=== PATIENT | male | born 1985 | race Caucasian/White ===

== ENCOUNTER 2022-12-06 16:13 | Emergency (ER) | payer OTHER, SELFPAY ==
[2022-12-06] VITALS (21 sets, daily range): BP systolic 106–144; BP diastolic 51–87; PULSE 71–104; RESP 12–18; TEMP 36.6; O2SAT 97–100
--- NOTE | ~2022-12-06 | CT_ITS ---
EXAMINATION: CT abdomen pelvis wo con DATE: 12/06/2022 17:30 INDICATION: RUQ/epigastric/LUQ tenderness, vomiting, constipat TECHNIQUE: Computed tomography (CT) of the abdomen and pelvis was performed without intravenous contr ast. Automated exposure control and iterative reconstruction technique were employed. The dose-length product was 496.75 mGy-cm. COMPARISON: None. FINDINGS: Lower thorax: Unremarkable Liver: Normal. Biliary/Gallbladder: Gallbladder is normal. No bile duct dilation. Pancreas: No mass or duct dilation. Spleen: Normal. Adrenals:No mass. Kidneys: No mass, stone, or hydronephrosis. GI tract: No small or large bowel dilation. Appendix not visualized and possibly surgically absent. Mesentery/Peritoneum: No ascites, mass, or free air. Retroperitoneum: No mass. Pelvis: Pelvic organs are within normal limits. Soft Tissues: Soft tissues and body wall unremarkable. Bones: No acute osseous finding. IMPRESSION: No acute abdominopelvic process detected. Reviewed, dictated and finalized at location [facility].
--- NOTE | 2022-12-06 16:56 | ED.ABDPAIN ---
HPI - Abdominal Pain General Chief Complaint: Abdominal Pain Stated Complaint: abd pain Time Seen by Provider: 12/06/22 16:24 History of Present Illness HPI narrative: Patient is a 37-year-old male with a history of hypertension presenting with abdominal pain. Patient states that starting since last night he has had worsening generalized abdominal pain. States that he has been extremely nauseated and had an episode of emesis this morning. States he has not had a bowel movement in several days. Denies prior abdominal surgeries. States that he took some Zofran earlier which did help with the nausea. He denies fevers or chills, headache, chest pain, shortness of breath, cough, dysuria, hematuria, leg swelling. Related Data Allergies Allergy/AdvReac Type Severity Reaction Status Date / Time Penicillins Allergy Hives Verified 12/06/22 17:37 Review of Systems Review of Systems: All systems reviewed & are unremarkable except as noted in HPI and below Exam Narrative: GENERAL: Well-appearing, well-nourished, and in no acute distress. HEAD: Normocephalic, atraumatic. EYES: PERRLA and EOMI. ENT: Nares clear, no rhinorrhea or epistaxis. Mucous membranes moist. NECK: Supple. CHEST: Clear to auscultation. No respiratory distress. HEART: Regular rate and rhythm ABDOMEN: Soft, + tender in left upper quadrant, epigastric region, right upper quadrant; no guarding or rebound EXTREMITIES: Normal range of motion. No edema. SKIN: Warm, dry, no rash. NEURO: No focal deficits. Alert and oriented x3. PSYCH: Normal mood and affect. Course Vital Signs Vital signs: Vital Signs Temperature 97.8 F 12/06/22 16:23 Pulse Rate 104 H 12/06/22 16:23 Respiratory Rate 18 12/06/22 16:23 Blood Pressure 113/51 L 12/06/22 16:23 Pulse Oximetry 99 12/06/22 16:23 Oxygen Delivery Room Air 12/06/22 16:23 Temperature 97.8 F 12/06/22 16:23 Pulse Rate 71 12/06/22 21:30 Respiratory Rate 12 12/06/22 21:30 Blood Pressure 123/87 12/06/22 21:30 Pulse Oximetry 99 12/06/22 21:30 Oxygen Delivery Room Air 12/06/22 16:23 MDM - Abdominal Pain MDM Narrative Medical decision making narrative: Patient is a 37-year-old male presenting with abdominal pain and nausea and vomiting. Patient is mildly tachycardic, otherwise vitals are within normal limits. Exam is remarkable for the above. Plan for Toradol, Zofran, fluids. Will obtain CT abdomen pelvis, labs. [id number] creatinine is elevated so CT abdomen pelvis switch to noncontrast. CMP is concerning for creatinine of 2.5, BUN of 30, potassium of 5.5. CT abdomen pelvis shows no acute abnormalities. CK is very mildly elevated at 496. Discussed the work-up with the patient and he would really prefer to not be admitted. 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 Repeat BMP following 3 L of fluids reveals an improvement in his creatinine to 1.90, BUN 25. Potassium is now normalized. On reevaluation, the patient is resting comfortably. Discussed the improvement in the labs. I again recommended admission but the patient would prefer outpatient management at this time. States that he will call nephrology and make rapid follow-up. Advised that he also follow-up closely with his PCP. Strongly advised pushing fluids and avoiding alcohol and other nephrotoxins. Strict return precautions given. Patient voices understanding and is agreeable with plan. Discharged in stable condition. Differential Diagnosis Differential diagnosis: Likely abdominal pain, acute appendicitis, calculus of kidney, constipation, diverticulitis, gastroenteritis, pancreatitis and small bowel obstruction Medical Records Attestation: I reviewed the patient's medical records. Lab Data Attestation: I reviewed the patient's lab results. 12/06/22 17:42 12/06/22 20:27 Labs: Lab Results 12/06/22 12/06/22 12/06/22 R
[2022-12-06 17:22] LABS: Estimated CRCL calculation 38 ml/min; Estimated Glomerular Filt Rate 25
[2022-12-06 17:22] LABS: Estimated CRCL calculation 36 ml/min; Estimated Glomerular Filt Rate 23
[2022-12-06] MEDS: SODIUM CHLORIDE 0.9% IV 1,000 ML 999 ML IV CONT ×3 (17:38→18:42)
[2022-12-06] MEDS: ONDANSETRON INJ 4 MG/2 ML VIAL IV PUSH (17:39)
[2022-12-06 17:54] LABS: Basophils Absolute Auto 0.1 K/mm3 (0.0-0.1); Basophils Percent Auto 0.6 % (0.2-1.2); Eosinophils Absolute Auto 0.1 K/mm3 (0-0.3); Eosinophils Percent Auto 0.9 % (0-4.4); Hematocrit 46.2 % (42.0-52.0); Hemoglobin 15.3 g/dL (14.0-18.0); Immature Granulocyte Absolute 0.05 K/mm3 (0.00-0.031); Immature Granulocyte Percent A 0.3 % (0-0.5); Lymphocytes Absolute Auto 1.93 K/mm3 (0.9-3.2); Lymphocytes Percent Auto 11.8 % (18.3-44.2); Mean Corpuscular HGB Conc 33.1 g/dl (32-36); Mean Corpuscular Hemoglobin 29.8 pg (26-34); Mean Corpuscular Volume 90.1 fl (80-100); Mean Platelet Volume 10.4 fl (7.4-10.4); Monocytes Percent Auto 6.4 % (2.6-8.5); Neutrophils Absolute Auto 13.1 K/mm3 (1.3-6.7); Platelet Count Result 639 k/mm3 (150-375); Red Blood Count 5.13 M/mm3 (4.6-6.20); White Blood Count 16.4 K/mm3 (4.5-10.0)
[2022-12-06 18:05] LABS: Alanine Aminotransferase 136 U/L (6-50); Albumin Level 4.5 g/dL (3.5-5.1); Alkaline Phosphatase 132 U/L (38-126); Anion Gap 11 mmol/L (8-16); Aspartate Amino Transferase 85 U/L (17-59); Bilirubin,Total 2.2 mg/dL (0.2-1.3); Blood Urea Nitrogen 30 mg/dL (9-20); Calcium 10.5 mg/dL (8.4-10.2); Carbon Dioxide 27 mmol/L (22-30); Chloride 96 mmol/L (98-107); Creatine Kinase 496 U/L (55-170); Estimated CRCL calculation 44 ml/min; Estimated Glomerular Filt Rate 29; Glucose 112 mg/dL (65-110); Lipase 224 U/L (23-300); Potassium 5.5 mmol/L (3.4-5.0); Sodium 134 mmol/L (137-145)
[2022-12-06 18:31] LABS: Appearance Urine Clear (Clear); Bacteria Urine None Seen /hpf; Bilirubin Urine 2+ (Negative); Blood Urine Negative (Negative); Color Urine Dark Yellow (Yellow); Glucose Urine UA Negative (Negative); Ketones Urine 2+ mg/dL (Negative); Leukocyte Esterase Ur Trace LEU/UL (Negative); Need Manual Microscopic Reviewed; Nitrate Urine Positive (Negative); Protein Urine Trace mg/dL (Negative); RBC Urine 0-2 /hpf (0-2); Specific Grav Ur 1.026 (1.001-1.035); Squamous Epithelial Cell Urine None seen /hpf (Few); Urobilinogen Urine >=8.0 mg/dL (<2.0); WBC Urine 0-5 /hpf
[2022-12-06 18:33] LABS: Add Urine Microscopic? YES
[2022-12-06] MEDS: MORPHINE SULFATE (*CRX) 2 MG/ML INJ IV PUSH (18:41)
--- NOTE | 2022-12-06 19:15 | PC.NURSE ---
Patient report given to YASMIN Perez. All questions answered and care of patient transferred.
[2022-12-06 20:43] LABS: Anion Gap 5 mmol/L (8-16); Blood Urea Nitrogen 25 mg/dL (9-20); Calcium 8.7 mg/dL (8.4-10.2); Carbon Dioxide 27 mmol/L (22-30); Chloride 103 mmol/L (98-107); Estimated CRCL calculation 58 ml/min; Estimated Glomerular Filt Rate 40; Glucose 102 mg/dL (65-110); Potassium 4.8 mmol/L (3.4-5.0); Sodium 135 mmol/L (137-145)
== END 2022-12-06 21:40 | disposition home or self-care (01) ==
PROVIDERS: Emergency Provider Emergency Medicine
DX: N17.9 Acute kidney failure, unspecified (principal); R74.01 Elevation of levels of liver transaminase levels; R10.84 Generalized abdominal pain
CPT/HCPCS: 74176; 80048; 80053; 81001; 82550; 83690; 85025; 96361; 96374; 96375; 99284; J2270; J2405; J7030

== ENCOUNTER 2023-02-18 13:14 | Outpatient (CLI) | payer OTHER, SELFPAY ==
--- NOTE | ~2023-02-18 | MR_ITS ---
MRI of the lumbar spine Clinical History: Back pain Technique: Axial T2-weighted images, and sagittal T1-weighted, T2-weighted, and T2 fat-sat images wer e acquired. Findings: There is no fracture or subluxation of the lumbar spine. Vertebral bodies maintain normal h eight and alignment. No suspicious bone marrow signal abnormality seen. At L1-L2, there is no disc bulge or herniation. There is moderate to advanced facet arthropathy. No c entral canal stenosis or neural foraminal narrowing. At L2-L3, there is no disc bulge or herniation. There is moderate to advanced facet arthropathy. No s nickolas canal stenosis or neural foraminal narrowing. At L3-L4, there is minimal disc bulge and moderate facet arthropathy. No central canal stenosis or de finite neural foraminal narrowing. At L4-L5, there is minimal disc bulge with moderate to advanced facet arthropathy. No spinal canal st enosis or definite neural foraminal narrowing. At L5-S1, there is no disc bulge or herniation. There is mild to moderate facet arthropathy. No centr al canal stenosis or neural foraminal narrowing. Paravertebral soft tissues are unremarkable. Impression: Diffuse facet arthropathy in the lumbar spine. No spinal canal stenosis or neural foraminal narrowing evident. Reviewed, dictated and finalized at [facility]. Impression: Diffuse facet arthropathy in the lumbar spine. No spinal canal stenosis or neural foraminal narrowing evident.
== END 2023-02-18 13:15 | disposition home or self-care (01) ==
PROVIDERS: PCP Nurse Practitioner Family; Visit Provider Nurse Practitioner Family
DX: M54.50 Low back pain, unspecified (principal)
CPT/HCPCS: 72148

== ENCOUNTER 2023-11-17 15:58 | Outpatient (CLI) | payer OTHER, SELFPAY ==
--- NOTE | ~2023-11-17 | MR_ITS ---
EXAMINATION: MR cervical spine wo con DATE: 11/17/2023 17:10 INDICATION: Spondylosis without myelopathy radiculopathy. Neck pain. TECHNIQUE: Magnetic resonance imaging (MRI) of the cervical spine was performed without intravenous c ontrast. COMPARISON: None FINDINGS: There is 3 degrees dextrocurvature of cervical spine. Vertebral body heights are normal. In tervertebral disc heights are normal. The spinal cord signal intensity is normal. The following disc levels are specifically discussed: C2-C3: There is a central protrusion. There is no uncovertebral joint osteoarthritis. There is mild r ight facet joint osteoarthritis. There is no neural foraminal stenosis. There is no central canal ruben nosis. C3-C4: There is a central protrusion. There is mild left uncovertebral joint osteoarthritis. There is no facet joint osteoarthritis. There is no neural foraminal stenosis. There is no central canal sten osis. C4-C5: There is a central protrusion. There is no uncovertebral joint osteoarthritis. There is mild b ilateral facet joint osteoarthritis. There is mild right neural foraminal stenosis. There is no centr al canal stenosis. C5-C6: There is a central extrusion. There is mild left uncovertebral joint osteoarthritis. There is mild bilateral facet joint osteoarthritis. There is no neural foraminal stenosis. There is mild centr al canal stenosis. C6-C7: There is a central protrusion. There is no uncovertebral joint osteoarthritis. There is mild l eft facet joint osteoarthritis. There is no neural foraminal stenosis. There is mild central canal st enosis. C7-T1: The disc does not extend beyond the endplate margin. There is no uncovertebral joint osteoarth ritis. There is mild bilateral facet joint osteoarthritis. There is no neural foraminal stenosis. The re is no central canal stenosis. IMPRESSION: 1. Mild cervical spondylosis. Reviewed, dictated and finalized at location A.
== END 2023-11-17 15:59 | disposition home or self-care (01) ==
PROVIDERS: PCP Family Medicine; Visit Provider Family Medicine
DX: Z00.00 Encounter for general adult medical examination without abnormal findings (principal); M47.812 Spondylosis without myelopathy or radiculopathy, cervical region; M43.02 Spondylolysis, cervical region
CPT/HCPCS: 72141